=== PATIENT | male | born 1950 | race Caucasian/White ===

== ENCOUNTER → 2017-08-30 | Outpatient (CLI) | payer MEDICARE, OTHER | END | disposition home or self-care (01) | LOC: CFH 08:03 | PROVIDERS: ATTEND Internal Medicine Cardiovascular Disease | DX: E78.5 Hyperlipidemia, unspecified (principal); K76.89 Other specified diseases of liver; Z13.6 Encounter for screening for cardiovascular disorders | CPT/HCPCS: 75571; 78452; 93017; A9502 ==

== ENCOUNTER 2019-04-16 10:16 | Outpatient (CLI) | payer MEDICARE, OTHER | END 2019-04-16 23:59 | disposition home or self-care (01) | LOC: CFH 10:16 | PROVIDERS: ATTEND Nurse Practitioner | DX: Z12.2 Encounter for screening for malignant neoplasm of respiratory organs (principal); I25.10 Atherosclerotic heart disease of native coronary artery without angina pectoris; Z87.891 Personal history of nicotine dependence | CPT/HCPCS: 76706; G0297 ==